=== PATIENT | male | born 1975 | race Hispanic/Latino ===

== ENCOUNTER 2024-08-25 15:44 | Emergency (ER) | payer OTHER, SELFPAY ==
[2024-08-25 15:52] VITALS: BP 153/91; PULSE 90; RESP 16; TEMP 36.8; O2SAT 95; BMI 40.8
[2024-08-25 20:13] VITALS: BP 173/86; PULSE 83; RESP 20; O2SAT 94
--- NOTE | 2024-08-25 21:14 | PC.NURSE ---
PT sitting in ED stretcher on phone. No distress noted at this time.
--- NOTE | 2024-08-25 21:43 | ED_ITS ---
HPI - Recheck/Abnormal Lab/Rx General Chief Complaint: Recheck/Abnormal Lab/Rx Stated Complaint: GLF t-14, Rib Pain Time Seen by Provider: 08/25/24 21:43 Source: patient Mode of arrival: Ambulatory History of Present Illness HPI narrative: 48-year-old male states he was seen in the emergency department at [facility] on 08/12/2024 same day that he fell on black ice, he has records that indicate he had studies done CT scan head, CT cervical spine, chest x-ray, and was released with no acute findings. He has persisting parasternal pain, worse with deep breathing, worse with palpation. Worse with movements of his trunk or back or position. He has been taking Tylenol and Motrin for the pain. He has not communicated with [employer], with whom he states that he is covered with insurance. Related Data Allergies Allergy/AdvReac Type Severity Reaction Status Date / Time No Known Drug Allergies Allergy Verified 08/25/24 15:52 Patient History Social History Smoking Status: Unknown if ever smoked Smoking Status: Unknown if ever smoked Exam Narrative Exam Narrative: GENERAL: Well-developed patient, in mild distress. HEAD: Atraumatic. Normocephalic. EYES: Pupils equal round and reactive. Extraocular motions intact. No scleral icterus. No injection or drainage. ENT: Nose without bleeding, purulent drainage. Throat without erythema, ton sillar hypertrophy or exudate. Airway patent. NECK: Trachea midline. Non tender CARDIOVASCULAR: Regular rate and rhythm without murmurs, gallops, or rubs. RESPIRATORY: Clear to auscultation. Breath sounds equal bilaterally. No wheezes, rales, or rhonchi. Speaks in full sentences. Has some tenderness to low parasternal right and left margin, lower rib margins right and left. No bruising or abrasions or skin changes obvious. Has pain in the same area with compression of sternum toward the spine bimanual. GASTROINTESTINAL: Abdomen soft, non-tender, nondistended. EXTREMITIES: No edema or joint tenderness. BACK: Nontender without deformity or crepitance. No flank tenderness. NEURO: AOx3. Motor functions grossly nonfocal SKIN: No rash or erythema of visible areas Initial Vital Signs Initial Vital Signs: Vital Signs Temperature 98.2 F 08/25/24 15:52 Pulse Rate 90 08/25/24 15:52 Respiratory Rate 16 02/16/25 15:52 Blood Pressure 153/91 H 08/25/24 15:52 Pulse Oximetry 95 08/25/24 15:52 Oxygen Delivery Method Room Air 08/25/24 15:52 Course Orders Ordered: ED Orders 08/25/24 21:57 XR chest 2V Stat Discontinued Medications Ketorolac Tromethamine (Ketorolac 30 Mg/Ml Vial) 30 mg IM NOW ONE Stop: 08/25/24 22:02 Last Admin: 08/25/24 22:20 Dose: Not Given Documented By: LEONARDA Vital Signs Vital signs: Vital Signs - 8 hr 08/25/24 22:30 08/25/24 23:43 Pulse Rate 89 81 Respiratory Rate 20 18 Blood Pressure 161/84 H 168/76 H Pulse Oximetry 99 97 Oxygen Delivery Method Room Air Room Air MDM - Recheck/Abnormal Lab/Rx Imaging Data Chest x-ray: Radiologist's Impression: [address] [address] XRay Report Signed Patient: Howard Faulkner MR#: [id number] : 1975 Acct:[id number] Age/Sex: 48 / M Date of Service: 08/25/24 Loc: ED Accession Number: [id number] Procedure: XR chest 2V Ordering Provider: Luke Giles MD PROCEDURE: XR CHEST 2V INDICATIONS: chest pain after fall 08/12/24, outside CXR negative [facility] TECHNIQUE: 2 views of the chest were acquired. COMPARISON: None. FINDINGS: Surgical changes and devices: None. Lungs and pleura: Lungs are clear. No pleural effusions or pneumothorax. Mediastinum: Mediastinal contours are normal. Heart size is normal. Bones and chest wall: No suspicious bony abnormalities. Soft tissues appear unremarkable. IMPRESSION: No acute cardiothoracic process. Dictated by: Dre Danielle M.D. on 08/25/2024 at 22:51 Approved by: Dre Danielle M.D. on 08/25/2024 at 22:51 [facility] Narrative Medical decision making narrative: 48-year-old male had ground level fall earlier this month 08/12/2024 slipping on black ice, was evaluated [facility] with CT head and cervical spine and x-rays of the chest that were negative, released home, having parasternal chest discomfort since that time. Tenderness on examination without skin changes or bruising to the lower sternal subcostal region. X-ray chest ordered. Chest x-ray here, no acute changes, see radiology report. We discussed labs and advanced imaging of chest and/or abdomen, declined for now. He will follow up tomorrow with [facility]. We also discussed tramadol or other pain control measures besides Tylenol and or Motrin, he declined for now, and we will discuss tomorrow with his PCP Sai. Return precautions discussed. Discharged home with family. Discharge Plan Departure Patient Disposition: Home Clinical Impression: Chest wall pain Activity Restrictions/Additional Instructions: Ground level fall on black ice evaluation earlier this month 08/12/2024 at emergency department [facility], records indicate at that time imaging was done including CT head and CT cervical spine and x-rays of the chest, and the studies were negative and you were discharged home. You have had persisting lower chest rib margin discomfort. Tenderness on examination. Chest x-ray repeat study done tonight was negative, no acute changes per Radiology report. We did discuss further testing such as blood testing and advanced imaging like CT scan of the chest and/or abdomen, declined for now. You stated that you would like to have follow up with your [facility] provider tomorrow. We also discussed further pain control measures such as tramadol, you declined this for now, stating that you would like to follow up with your [facility] provider tomorrow. Continue taking Tylenol and or Motrin as needed for pain control. Breathe deeply to help prevent pneumonia complication of chest wall injury. Follow up with your regular provider at [facility] tomorrow. Return to this/nearest emergency department for any change worsening symptoms or any concerns. Thank you for allowing our team to evaluate you today. Stand Alone Forms: Patient Portal/API/Survey
--- NOTE | 2024-08-25 21:57 | DI.RAD.S_ITS ---
PROCEDURE: XR CHEST 2V INDICATIONS: chest pain after fall 08/12/24, outside CXR negative [facility] TECHNIQUE: 2 views of the chest were acquired. COMPARISON: None. FINDINGS: Surgical changes and devices: None. Lungs and pleura: Lungs are clear. No pleural effusions or pneumothorax. Mediastinum: Mediastinal contours are normal. Heart size is normal. Bones and chest wall: No suspicious bony abnormalities. Soft tissues appear unremarkable. IMPRESSION: No acute cardiothoracic process. Dictated by: Dre Danielle M.D. on 08/25/2024 at 22:51 Approved by: Dre Danielle M.D. on 08/25/2024 at 22:51
--- NOTE | 2024-08-25 22:29 | PC.NURSE ---
RN to administer Toradol IM injection. Pt states I don't need that. Confirm with patient that he did not want pain medicine that was ordered for him. He asks if he can decide when he comes back from imaging. RN agrees. Pt ambulatory to imaging with transport technician. Upon return to department pt brings a male epic specialist back from waiting room and states to RN that he is going to discuss with this person on whether or not he will take med. Approx 15 minutes later pt tells nurse I don't need it.
[2024-08-25 22:30] VITALS: BP 161/84; PULSE 89; RESP 20; O2SAT 99
[2024-08-25 23:43] VITALS: BP 168/76; PULSE 81; RESP 18; O2SAT 97
== END 2024-08-25 23:43 | disposition home or self-care (01) ==
PROVIDERS: Emergency Provider Emergency Medicine
DX: R07.89 Other chest pain (principal); W00.0XXA Fall on same level due to ice and snow, initial encounter; Y99.0 Civilian activity done for income or pay
CPT/HCPCS: 71046; 99281; 99283; J1885